=== PATIENT | male | born 1980 | race Hispanic/Latino ===

== ENCOUNTER → 2017-12-09 | Outpatient (CLI) | payer BC ==
[2017-12-10 07:27] LABS: INR 0.89; PROTHROMBIN TIME 12.5 seconds (11.9-14.5)
[2017-12-10 07:52] LABS: FERRITIN 206.55 ng/mL (21.81-274.66); THYROID STIMULATING HORMONE 3.466 uIU/mL (0.350-4.940)
== END ==
LOC: LAB 16:38
PROVIDERS: ATTEND Internal Medicine Gastroenterology
DX: I10 Essential (primary) hypertension (principal); E66.9 Obesity, unspecified; Z71.3 Dietary counseling and surveillance
CPT/HCPCS: 36415; 82105; 82728; 83540; 84443; 84466; 85610; 85730; 86039; 86255; 87522

== ENCOUNTER 2022-04-29 06:32 | Emergency (ER) | payer BC ==
[~2022-04-29] VITALS: Ht 177.8 cm; Wt 96.2 kg
[2022-04-29] MEDS ORDERED: BACTRIM DS TAB1 EACH PO (06:52)
== END 2022-04-29 07:04 | disposition home or self-care (01) ==
LOC: ER 06:44
DX: S01.01XA Laceration without foreign body of scalp, initial encounter (principal); W22.09XA Striking against other stationary object, initial encounter; Y92.098 Other place in other non-institutional residence as the place of occurrence of the external cause; I10 Essential (primary) hypertension; Z85.47 Personal history of malignant neoplasm of testis
CPT/HCPCS: 99283